=== PATIENT | male | born 1985 | race American Indian/Alaskan Native ===

== ENCOUNTER 2016-04-10 08:07 | Emergency (ER) | payer OTHER ==
[2016-04-10 08:27] VITALS: BP 135/96
[2016-04-10 08:46] LABS: Basophils % (Auto) 0.4 % (0.0-1.8); Eosinophils % (Auto) 0.2 % (0.0-4.3); Hematocrit 45.3 % (35.5-45.6); Hemoglobin 15.3 gm/dl (11.8-15.2); Mean Corpuscular HGB Conc 34 % (32-34); Mean Corpuscular Hemoglobin 31 pg (28-32); Mean Corpuscular Volume 93 fl (84-94); Platelet Count 185 K/mm3 (140-440); Red Blood Count 4.88 M/mm3 (3.65-5.03); Red Cell Distribution Width 13.5 % (13.2-15.2); White Blood Count 4.5 K/mm3 (4.5-11.0)
[2016-04-10 09:09] LABS: Anion Gap 16 mmol/L; Blood Urea Nitrogen 12 mg/dL (9-20); Calcium 9.1 mg/dL (8.4-10.2); Carbon Dioxide 26 mmol/L (22-30); Chloride 103.1 mmol/L (98-107); Glucose 93 mg/dL (75-100); Potassium 4.1 mmol/L (3.6-5.0); Sodium 141 mmol/L (137-145)
--- NOTE | 2016-04-10 09:44 | Emergency Department Report ---
HPI - General Chief Complaint: Chest Pain Time Seen by Provider: 04/10/16 09:21 - HPI HPI: This is a 30-year-old -[place] male who presents to the emergency department with complaint of some palpitations, shortness of breath, anxiety and some feelings of near syncope like he is going to pass out that is been happening intermittently since yesterday after work. Patient currently says he is asymptomatic but it occurred again this morning and therefore decided to be seen. He did not take anything for symptoms prior to presentation. He says that these set of symptoms that happened in the past before. He does not have any diagnosis of anxiety or panic disorder but says that he feels like he must have that condition. He is a tobacco smoker and says that one of the times that he smoked a cigarette and brought on the symptoms immediately. He denies any other past medical history. No recent travel or sick contacts at home. He does not have a primary care doctor. He denies any illicit drug use. ED Review of Systems ROS: Stated complaint: CHEST PAIN Other details as noted in HPI Comment: All other systems reviewed and negative Constitutional: denies: chills, fever Eyes: denies: eye pain, eye discharge, vision change ENT: denies: ear pain, throat pain Respiratory: shortness of breath. denies: cough, wheezing Cardiovascular: chest pain, palpitations. denies: edema Gastrointestinal: denies: abdominal pain, nausea, diarrhea Genitourinary: denies: urgency, dysuria Musculoskeletal: denies: back pain, joint swelling, arthralgia Skin: denies: rash, lesions Neurological: denies: headache, weakness, paresthesias Physical Exam - Physical Exam Vital Signs: Vital Signs 04/10/16 08:23 Temperature 98.2 F Pulse Rate 62 Respiratory 18 Rate Blood Pressure 135/96 O2 Sat by Pulse 100 Oximetry Physical Exam: GENERAL: The patient is well-developed well-nourished. HEENT: Normocephalic. Atraumatic. Extraocular motions are intact. Patient has moist mucous membranes. Pupils equal reactive to light bilaterally. NECK: Supple. Trachea is midline. CHEST/LUNGS: Clear to auscultation. There is no respiratory distress noted. HEART/CARDIOVASCULAR: Regular. There is no tachycardia. There is no gallop rub or murmur. ABDOMEN: Abdomen is soft, nontender. Patient has normal bowel sounds. There is no abdominal distention. SKIN: There is no rash. There is no edema. There is no diaphoresis. NEURO: The patient is awake, alert, and oriented. The patient is cooperative. The patient has no focal neurologic deficits. The patient has normal speech. Cranial nerves II through XII grossly intact. MUSCULOSKELETAL: There is no tenderness or deformity. There is no limitation range of motion. There is no evidence of acute injury. ED Course Vital Signs 04/10/16 08:23 Temperature 98.2 F Pulse Rate 62 Respiratory 18 Rate Blood Pressure 135/96 O2 Sat by Pulse 100 Oximetry ED Medical Decision Making - Lab Data Result diagrams: 04/10/16 08:37 04/10/16 08:37 - EKG Data -: EKG Interpreted by Me EKG shows normal: sinus rhythm, axis, intervals, QRS complexes (LVH), ST-T waves Rate: normal - EKG Data When compared to previous EKG there are: previous EKG unavailable Interpretation: LVH - Radiology Data Radiology results: image reviewed interpreted by me: Chest x-ray did not show any acute process. Heart is normal shape and size. No effusions. No pneumothorax. No signs of pneumonia seen. - Medical Decision Making 30-year-old male presents the emergency department with some complaints of intermittent chest pain, shortness breath, palpitations and anxiety. Currently is symptomatic. EKG shows some LVH. Otherwise no ST elevation PA, ischemia or dysrhythmia. Chest x-ray does not show any acute process. Patient labs have been unremarkable including negative troponin and negative d-dimer. No signs of infection or electrolyte abnormalities. Patient has been reevaluated multiple times for multiple hours and upon this last reevaluation the patient is seen [facility]. He will be discharged home with referrals for primary care, cardiology, and the [facility]. He will return to the ER with any return of his symptoms or any acute distress. We discussed tobacco cessation and staying away from any highly caffeinated products. - Differential Diagnosis hypothyroidism, PA, PE, pneumonia, anxiety/panic Critical Care Time: No Critical care attestation.: If time is entered above; I have spent that time in minutes in the direct care of this critically ill patient, excluding procedure time. ED Disposition Clinical Impression: Heart palpitations, Anxiety Chest pain Qualifiers: Chest pain type: unspecified Qualified Code(s): R07.9 - Chest pain, unspecified Disposition: DISCHARGED TO HOME OR SELFCARE Is pt being admited?: No Does the pt Need Aspirin: No Condition: Stable Instructions: Chest Pain (ED), Palpitations (ED) Additional Instructions: I have given you a referral for both private and clinic primary care physician' s. I have also given you a referral for a local inspector [employer], Dr. Rodriguez. I have also given you a referral for the [facility] in case she would like to follow up regarding any anxiety or family history of psychiatric conditions. Return to the emergency department immediately with any return of your chest pain or any acute distress. Referrals: PRIMARY CARE, [Primary Care Provider] - 3-5 Days SARAH RODRIGUEZ MD [Staff Physician] - 3-5 Days ABEL ROSENBERG MD [Staff Physician] - 3-5 Days [facility] [Outside] - 3-5 Days [facility] [Outside] - 3-5 Days Time of Disposition: 11:08
--- NOTE | 2016-04-10 09:54 | XRay Report ---
Chest 2 views: History: Chest pain. Findings: Normal cardiomediastinal silhouette. Trachea is midline. No consolidation, pneumothorax or pleural effusion. Impression No acute cardiopulmonary findings.
== END 2016-04-10 11:36 | disposition home or self-care (01) ==
LOC: ED 08:07
DX: R00.2 Palpitations (principal); R07.9 Chest pain, unspecified
CPT/HCPCS: 36415; 71020; 80048; 84443; 84484; 85025; 85379; 93005; 93010; 99285

== ENCOUNTER 2016-06-26 10:28 | Emergency (ER) | payer BC ==
[2016-06-26 12:14] VITALS: BP 136/92
[2016-06-26] MEDS ORDERED: BICILLIN L-A IM ONE (13:26)
--- NOTE | 2016-06-26 13:39 | Emergency Department Report ---
ED Rash HPI - HPI Chief Complaint: Skin Rash Stated Complaint: ITCHING/BAD RASH OVER BODY Time Seen by Provider: 06/26/16 13:15 Duration: 1 week Location: Head, Neck, Chest, Back, Upper Extremities, Lower Extremities Suspected Cause: Unknown Rash Symptoms: Yes Itching, Yes Facial Swelling, No Tongue/Oral Swelling, No Breathing Difficulties, No Choking Sensation, No Wheezing/Dyspnea, No Peeling, No Blistering, No Fever, No Lightheaded, No Malaise, No Myalgias Severity: moderate Other History: patient states that he was seen a doctor's office a week ago and told that he has syphillis. Was started on Doxycycline and has been taking for 1 week. Since starting medication, he has noticed new rash and itching diffusely. ED Review of Systems ROS: Stated complaint: ITCHING/BAD RASH OVER BODY Other details as noted in HPI Constitutional: denies: chills, fever Eyes: denies: eye pain, eye discharge, vision change ENT: denies: ear pain, throat pain Respiratory: denies: cough, shortness of breath, wheezing Cardiovascular: denies: chest pain, palpitations Endocrine: no symptoms reported Gastrointestinal: denies: abdominal pain, nausea, diarrhea Genitourinary: denies: urgency, dysuria Musculoskeletal: denies: back pain, joint swelling, arthralgia Skin: rash, pruritus. denies: lesions Neurological: denies: headache, weakness, paresthesias Psychiatric: denies: anxiety, depression Hematological/Lymphatic: denies: easy bleeding, easy bruising ED Past Medical Hx - Past Medical History Previous Medical History?: No Hx Asthma: Yes (CHILD) - Surgical History Past Surgical History?: No Additional Surgical History: HERNIA REPAIR - Social History Smoking Status: Current Every Day Smoker Substance Use Type: Alcohol, Marijuana - Medications Home Medications: Home Medications Medication Instructions Recorded Confirmed Last Taken Type predniSONE [Deltasone] 60 mg PO QDAY 5 Days 06/26/16 Unknown Rx Rash Exam - Exam General: Vital signs noted. No distress. Alert and acting appropriately. HEENT: No Periorbital Edema, No Conjuctival Injection, No Chemosis, No Perioral Edema, No Tongue Edema, No Uvular Edema, No Compromised Airway, No Drooling Lungs: Yes Good Air Exchange (Normal Breath Sounds), No Wheezes, No Ronchi, No Stridor, No Cough, No Labored Respirations, No Retractions, No Use of Accessory Muscles, No Other Abnormal Lung Sounds Heart: Yes Regular, No Murmur Skin: Yes Urticarial Rash (to face, neck, UE, LE, trunk), Yes Maculopapular Rash , Yes Erythema, Yes Other (dark circular lesions noted to bilateral plantar feet ), No Weeping, No Tenderness Other: Positive: Abdomen Normal, Neurologic Normal, Musculoskeletal Normal ED Course Vital Signs 06/26/16 12:08 Temperature 98.1 F Pulse Rate 66 Respiratory 17 Rate Blood Pressure 136/92 O2 Sat by Pulse 100 Oximetry ED Medical Decision Making - Medical Decision Making I do not believe patient's rash to be related to recent Dx of syphillis but rather than a possible reaction to new Doxycycline. Patient given Bicillin L-A in the ER today and I have instructed patient to stop the Doxycycline. I will start short course of prednisone for his current symptoms. Patient is in agreement with Tx plan. Critical care attestation.: If time is entered above; I have spent that time in minutes in the direct care of this critically ill patient, excluding procedure time. ED Disposition Clinical Impression: Syphilis, Rash, Allergic reaction caused by a drug Disposition: DISCHARGED TO HOME OR SELFCARE Is pt being admited?: No Does the pt Need Aspirin: No Condition: Good Instructions: Syphilis (ED), Antibiotic Medication Allergy (ED) Prescriptions: predniSONE [Deltasone] 60 mg PO QDAY 5 Days Referrals: PRIMARY CARE, [Primary Care Provider] - 3-5 Days Time of Disposition: 13:48
== END 2016-06-26 14:13 | disposition home or self-care (01) ==
LOC: ED 10:28
DX: A53.9 Syphilis, unspecified (principal); R21 Rash and other nonspecific skin eruption; T50.905A Adverse effect of unspecified drugs, medicaments and biological substances, initial encounter; J45.909 Unspecified asthma, uncomplicated; F17.200 Nicotine dependence, unspecified, uncomplicated; F12.90 Cannabis use, unspecified, uncomplicated; Y92.89 Other specified places as the place of occurrence of the external cause
CPT/HCPCS: 96372; 99282; J0561